=== PATIENT | female | born 2000 | race Caucasian/White ===

== ENCOUNTER 2023-02-24 10:02 | Outpatient (OUT) | payer OTHER, SELFPAY ==
--- NOTE | 2023-02-24 10:04 | US_ITS ---
[address] [address] Patient Name: ELIAS DELGADO MRN: [id number] date: 2000 Sex: F Assigned Patient Location: Current Patient Location: US Accession/Order Number: [id number] Exam Date: 02/24/2023 10:05 Report Date: 02/24/2023 15:17 At the request of: TINO ALVARADO Procedure: US OB transvaginal EXAMINATION: US OB transvaginal HISTORY: MISSED PERIOD COMPARISON: No relevant comparison available. FINDINGS: GESTATIONAL SAC: Present and normal appearing. YOLK SAC: Present and normal appearing. POLE: Present and normal appearing. CARDIAC: Present. UTERUS: Normal size and appearance. OVARIES: Right: Normal. Left: Normal. CERVIX: 4.7 cm in length and closed. CUL-DE-SAC: Normal. OTHER: None. AGE BY LMP: 8 weeks 1 day RATIE BY LMP: 10/05/2023 AGE BY US CRL: 8 weeks 0 days ARTIE BY US CRL: 10/06/2023 US/US OB transvaginal IMPRESSION: 1. Single live intrauterine . Electronically authenticated by: JESUSITA HEMPHILL Date: 02/24/2023 15:17
== END 2023-02-24 10:03 | disposition home or self-care (01) ==
PROVIDERS: Visit Provider Obstetrics & Gynecology
DX: Z34.91 Encounter for supervision of normal pregnancy, unspecified, first trimester (principal); Z3A.08 8 weeks gestation of pregnancy; N92.6 Irregular menstruation, unspecified
CPT/HCPCS: 76817

== ENCOUNTER 2023-03-24 15:43 | Outpatient (OUT) | payer OTHER, SELFPAY ==
[2023-03-24 16:03] LABS: Basophils Percent Auto 0.3 % (0.2-2.0); Eosinophils Absolute Auto 0.1 10^3/uL (0.0-0.7); Eosinophils Percent Auto 1.4 % (0.9-7.0); Hematocrit 34.7 % (36.0-48.0); Hemoglobin 11.5 g/dL (12.0-16.0); Immature Granulocytes Abs Auto 0.01 10^3/uL (0.00-0.03); Immature Granulocytes Pct Auto 0.1 % (0.0-0.5); Lymphocytes Absolute Auto 1.6 10^3/uL (1.2-3.8); Mean Corpuscular HGB Conc 33.1 g/dL (29.9-35.2); Mean Corpuscular Hemoglobin 26.4 pg (26.7-34.0); Mean Corpuscular Volume 79.6 fL (81.0-99.0); Mean Platelet Volume 10.2 fL (9.5-13.5); Monocytes Absolute Auto 0.4 10^3/uL (0.3-0.8); Monocytes Percent Auto 5.9 % (1.7-12.0); Neutrophils Absolute Auto 4.9 10^3/uL (1.4-6.5); Neutrophils Percent Auto 69.3 % (43.0-75.0); Platelet Count 218 10^3/uL (150-450); Red Blood Count 4.36 10^6/uL (4.20-5.40); Red Cell Distribution Width 19.4 % (11.0-15.0); White Blood Count 7.1 10^3/uL (4.0-11.0)
[2023-03-24 16:13] LABS: Estimated Average Glucose 97 mg/dL
[2023-03-24 16:45] LABS: Thyroid Stimulating Hormone 1.298 uIU/mL (0.358-3.740)
[2023-03-26 08:08] LABS: HBsAg Screen Negative (Negative); HIV Ab/p24 Ag Screen Non Reactive (Non Reactive); Rubella Antibodies, IgG 1.59 index (Immune >0.99)
[2023-03-26 09:07] LABS: Rapid Plasma Reagin, Quant Non Reactive (NonRea<1:1)
[2023-03-26 11:07] LABS: HCV Ab Non Reactive (Non Reactive)
== END 2023-03-24 15:44 | disposition home or self-care (01) ==
PROVIDERS: Visit Provider Obstetrics & Gynecology
DX: N92.6 Irregular menstruation, unspecified (principal)
CPT/HCPCS: 36415; 83036; 84443; 85025; 86592; 86706; 86762; 86803; 86850; 86900; 86901; 87086; 87389

== ENCOUNTER 2023-04-25 20:47 | Outpatient (REF) | payer OTHER, SELFPAY ==
[2023-04-30 21:06] LABS: Age Gdln ACOG Testing Note (.); IGP, rfx Aptima HPV ASCU Note (.)
== END 2023-04-25 20:48 | disposition home or self-care (01) ==
LOC: LAB 20:47
PROVIDERS: Visit Provider Physician Assistant
DX: Z12.4 Encounter for screening for malignant neoplasm of cervix (principal)
CPT/HCPCS: G0145

== ENCOUNTER 2023-05-05 12:19 | Outpatient (OUT) | payer OTHER, SELFPAY | END 2023-05-05 12:20 | disposition home or self-care (01) | LOC: LAB 12:22 | PROVIDERS: Visit Provider Obstetrics & Gynecology | DX: Z34.80 Encounter for supervision of other normal pregnancy, unspecified trimester (principal) | CPT/HCPCS: 36415 ==

== ENCOUNTER 2023-05-23 09:32 | Outpatient (OUT) | payer OTHER, SELFPAY ==
--- NOTE | 2023-05-23 09:34 | US_ITS ---
[address] [address] Patient Name: ELIAS DELGADO MRN: [id number] date: 2000 Sex: F Assigned Patient Location: US Current Patient Location: Accession/Order Number: [id number] Exam Date: 05/23/2023 09:35 Report Date: 05/23/2023 22:16 At the request of: SAIRA JOE Procedure: US OB cervical length EXAMINATION: US OB anatomy, US OB cervical length HISTORY: ANATOMY COMPARISON: No relevant comparison available. TECHNIQUE: Transabdominal sonographic examination was performed for obstetrical and evaluation. FINDINGS: Number: One Heart Rate: 141 H.B. /min Amniotic Fluid Volume: Subjectively normal Placental Location: Posterior with lower margin 5.2 cm from os. Cervix Length: 4.6 cm; closed. ANATOMY: Normal Structures -cerebellum, choroid plexus, cisterna magna, lateral cerebral ventricles, orbits, midline falx, hard palate, four-chamber heart, stomach, kidneys, bladder, umbilical cord insertion into abdomen, three-vessel cord, cervical spine, thoracic spine, lumbar spine, sacral spine, right upper extremity, left upper extremity, right lower extremity, left lower extremity. SUBOPTIMALLY SEEN: RVOT, LVOT, ABNORMALITIES: None BIOMETRY: BPD: 4.76 cm ; 20 weeks 3 days ; 36% HC: 17.83 cm ; 20 weeks 2 days ; 23% AC: 14.89 cm ; 20 weeks 1 day; 26% FL: 3.31 cm ; 20 weeks 2 days; 29% EFW:342 g; 22% FL/AC: 22.23 FL/BPD: 69.54 HC/AC: 1.20 GESTATIONAL AGE: Age by EDC: 20 weeks 5 days ARTIE by EDC: 10/05/2023 Age by current US: 20 weeks 2 days ARTIE by current US: 10/08/2023 US/US OB cervical length IMPRESSION: 1. Single live intrauterine with growth detailed above. 2. Suboptimal visualization of the cardiac outflow tracts due to position. Electronically authenticated by: JESUSITA HEMPHILL Date: 05/23/2023 22:16
--- NOTE | 2023-05-23 09:34 | US_ITS ---
[address] [address] Patient Name: ELIAS DELGADO MRN: [id number] date: 2000 Sex: F Assigned Patient Location: US Current Patient Location: Accession/Order Number: [id number] Exam Date: 05/23/2023 09:35 Report Date: 05/23/2023 22:16 At the request of: SAIRA JOE Procedure: US OB anatomy EXAMINATION: US OB anatomy, US OB cervical length HISTORY: ANATOMY COMPARISON: No relevant comparison available. TECHNIQUE: Transabdominal sonographic examination was performed for obstetrical and evaluation. FINDINGS: Number: One Heart Rate: 141 H.B. /min Amniotic Fluid Volume: Subjectively normal Placental Location: Posterior with lower margin 5.2 cm from os. Cervix Length: 4.6 cm; closed. ANATOMY: Normal Structures -cerebellum, choroid plexus, cisterna magna, lateral cerebral ventricles, orbits, midline falx, hard palate, four-chamber heart, stomach, kidneys, bladder, umbilical cord insertion into abdomen, three-vessel cord, cervical spine, thoracic spine, lumbar spine, sacral spine, right upper extremity, left upper extremity, right lower extremity, left lower extremity. SUBOPTIMALLY SEEN: RVOT, LVOT, ABNORMALITIES: None BIOMETRY: BPD: 4.76 cm ; 20 weeks 3 days ; 36% HC: 17.83 cm ; 20 weeks 2 days ; 23% AC: 14.89 cm ; 20 weeks 1 day; 26% FL: 3.31 cm ; 20 weeks 2 days; 29% EFW:342 g; 22% FL/AC: 22.23 FL/BPD: 69.54 HC/AC: 1.20 GESTATIONAL AGE: Age by EDC: 20 weeks 5 days ARTIE by EDC: 10/05/2023 Age by current US: 20 weeks 2 days ARTIE by current US: 10/08/2023 US/US OB anatomy IMPRESSION: 1. Single live intrauterine with growth detailed above. 2. Suboptimal visualization of the cardiac outflow tracts due to position. Electronically authenticated by: JESUSITA HEMPHILL Date: 05/23/2023 22:16
== END 2023-05-23 09:33 | disposition home or self-care (01) ==
LOC: US 09:32
PROVIDERS: Visit Provider Physician Assistant
DX: Z34.92 Encounter for supervision of normal pregnancy, unspecified, second trimester (principal); Z3A.20 20 weeks gestation of pregnancy
CPT/HCPCS: 76805; 76817

== ENCOUNTER 2023-06-27 14:47 | Outpatient (OUT) | payer OTHER, SELFPAY ==
--- NOTE | 2023-06-27 14:49 | US_ITS ---
The [address] [address] Patient Name: ELIAS DELGADO MRN: [id number] date: 2000 Sex: F Assigned Patient Location: US Current Patient Location: US Accession/Order Number: [id number] Exam Date: 06/27/2023 14:50 Report Date: 06/27/2023 15:54 At the request of: TINO ALVARADO Procedure: US OB incomplete anatomy EXAM: US OB incomplete anatomy HISTORY: SUBVISUALIZED RVOT AND LVOT COMPARISON: Ultrasound OB anatomy 05/23/2023 TECHNIQUE: Transabdominal ultrasound. FINDINGS: Heart rate: 156 bpm presentation: Breech Anatomy: Four-chamber heart, RVOT, LVOT without appreciable abnormality. GA: 25 weeks 5 days ARTIE: 10/05/2023 US/US OB incomplete anatomy IMPRESSION: 1. Single live intrauterine . 2. Adequate visualization of the four-chamber heart and cardiac outflow tracts; no appreciable abnormality. Electronically authenticated by: JESUSITA HEMPHILL Date: 06/27/2023 15:54
== END 2023-06-27 14:48 | disposition home or self-care (01) ==
LOC: US 14:47
PROVIDERS: Visit Provider Obstetrics & Gynecology
DX: Z36.2 Encounter for other antenatal screening follow-up (principal)
CPT/HCPCS: 76815

== ENCOUNTER 2023-07-13 07:29 | Outpatient (RCR) | payer OTHER, SELFPAY ==
[2023-07-13] MEDS: RHO(D) IMMUNE GLOBULIN 1,500 UNIT SYRINGE 1500 UNIT IM (14:50)
[2023-07-13 15:11] VITALS: BP 119/79; PULSE 86; RESP 18; TEMP 36.4; O2SAT 99
== END 2023-07-13 14:50 | disposition home or self-care (01) ==
LOC: INF 07:29
PROVIDERS: Visit Provider Obstetrics & Gynecology
DX: O26.893 Other specified pregnancy related conditions, third trimester (principal); Z67.41 Type O blood, Rh negative; Z3A.00 Weeks of gestation of pregnancy not specified
CPT/HCPCS: 36415; 86850; 86900; 86901; 96372; J2790

== ENCOUNTER 2023-07-13 20:58 | Observation (INO) | payer OTHER, SELFPAY ==
[2023-07-13 21:10] VITALS: BP 114/56; PULSE 64
== END 2023-07-13 21:30 | disposition home or self-care (01) ==
PROVIDERS: Admitting Provider Obstetrics & Gynecology; Visit Provider Obstetrics & Gynecology
DX: O26.893 Other specified pregnancy related conditions, third trimester (principal); Z67.41 Type O blood, Rh negative; O36.8130 Decreased fetal movements, third trimester, not applicable or unspecified; Z3A.00 Weeks of gestation of pregnancy not specified
CPT/HCPCS: 59025; 96372; G0378; G0379; J2790

== ENCOUNTER 2023-07-28 10:41 | Outpatient (OUT) | payer OTHER, SELFPAY ==
--- OUTSIDE RECORDS SUMMARY | 2023-07-28 10:44 | XMS_ITS | CCD ---
Author Name Unknown Address [address] [place] [address] Organization [facility] Care Team Providers Care Financial Analysis Manager Name Role Phone ISABEL ADEN Admitting Randolph ADEN, ISABEL Attending Randolph ADEN, ISABEL Consulting SAIRA Dejesus Attending Unavailable Problems Problem Classification Problem Date Documented Date Episodic/Chronic Inflammatory diseases of female pelvic organs (1 source) Acute vaginitis; Translations: [ACUTE VAGINITIS] Onset: 01-15-2020 Episodic Other female genital disorders (3 sources) Other specified noninflammatory disorders of vagina; Translations: [OTH SPEC NONINFLAMMATORY D/O VAGINA] Onset: 07-30-2019 Episodic Screening and history of mental health and substance abuse codes (1 source) Personal history of nicotine dependence; Translations: [PERSONAL HISTORY OF NICOTINE DEPEND] Onset: 01-15-2020 Episodic Results Test Name Value Interpretation Reference Range Facil ity ER URINE PROFILEon 9 Bilirubin [Mass/Vol] Negative Normal NEGATIVE The [facility] Comment on above: Performed By: #### E RUR #### [facility] [address] [address] Won Letty BLOOD Negative Normal NEGATIVE The [facility] Comment on above: Performed By: #### E RUR #### [facility] [address] [id number] Won Letty Clarity (U) CLEAR Normal [facility] Comment on above: Performed By: #### E RUR #### [facility] [address] [place], [place] [address] Won Letty Color (U) LT. YELLOW Normal YELLOW [facility] Comment on above: Performed By: #### E RUR #### [facility] [address] [place], [place] [id number] Won Letty ERUAHD A micrscopic examination will be performed if indicated. Normal [facility] Comment on above: Performed By: #### E RUR #### [facility] [address] [place], [place] [id number] Won Letty Glucose [Mass/Vol] Negative Normal NEGATIVE [facility] Comment on above: Performed By: #### E RUR #### [facility] [address] [place] [address] Won Letty Ketones Ql (U) Negative Normal NEGATIVE The [facility] Comment on above: Performed By: #### E RUR #### [facility] [address] [place] [address] Won Letty Nitrite Ql (U) Negative Normal NEGATIVE The [facility] Comment on above: Performed By: #### E RUR #### [facility] [address] [place] [address] Won Letty pH (Bld) 7.0 Normal 5-9 [facility] Comment on above: Performed By: #### E RUR #### [facility] [address] [place] [address] Won Letty Protein (U) [Mass/Vol] TRACE Normal [facility] Comment on above: Performed By: #### E RUR #### [facility] [address] [place] [address] Won Letty SPEC GRAVITY 1.020 Normal 1.005-<=1.025 [facility] Comment on above: Performed By: #### E RUR #### [facility] [address] [place], [place] [id number] Won Letty UR MICRO IND NOT INDICATED Normal [facility] Comment on above: Performed By: #### E RUR #### [facility] [address] [place] [address] Won Letty Urobilinogen Qn (U) 0.2 EU/dl Normal [facility] Comment on above: Performed By: #### E RUR #### [facility] [address] [place], [place] [address] Won Saenz WBC (Bld) [#/Vol] Negative Normal NEGATIVE The [facility] Comment on above: Performed By: #### E RUR #### [facility] [address] [place], [place] [address] Won Saenz URon 07-30-2019 , QUAL Negative Normal NEGATIVE The [facility] Comment on above: Performed By: #### P REGU #### [facility] [address] [place], [place] [address] Won Saenz Encounters Encounter Date Encounter Type Care Provider Facility Start: 06-20-2023 End: 06-20-2023 ambulatory SAIRA JOE Not Available Start: 07-30-2019 End: 07-30-2019 Patient encounter procedure FERNESTEFANI HOWELLLOLIS Facility: Payers Date Payer Category Payer Unknown [id number] 2.16.84 [id number] 2000 Unknown [id number] 1959 Unknown [id number] Summary Purpose Family History No Family History Records FoundNo Family History Records Found Advance Directives No Advanced Directives Records FoundNo Advanced Directives Records Found Additional Source Comments INFORMATION SOURCE (unrecogn ized section and content) DATE CREATED AUTHOR 01/15/2020 [facility] DATE CREATED AUTHOR AUTHOR'S ORGANIZ ATION 06/22/2023 [facility] dical Specialists [facility] FOR RECORDS PERTAINING TO PATIENTS WHO ARE OR HAVE BEEN ENROLLED IN A CHEMICAL DEPENDENCY/SUBSTANCEABUSE PROGRAM, SOME INFORMATION MAY BE OMITTED. This clinical summary was aggregated from multiple sources. Caution should be exercised in using it in the provision of clinical care. This summary normalizes information from multiple sources, and as a consequence, information in this document may materially change the coding, format and clinical context of patient data. In addition, data may be omitted in some cases. CLINICAL DECISIONS SHOULD BE BASED ON THE PRIMARY CLINICAL RECORDS. [facility] [employer] provides no warranty or guarantee of the accuracy or completeness of information in this document.
[2023-07-28 12:26] LABS: Glucose 1 Hour 138 mg/dL
== END 2023-07-28 10:42 | disposition home or self-care (01) ==
LOC: LAB 10:42
PROVIDERS: Visit Provider Physician Assistant
DX: Z34.92 Encounter for supervision of normal pregnancy, unspecified, second trimester (principal)
CPT/HCPCS: 36415; 82950

== ENCOUNTER 2023-09-06 14:04 | Outpatient (OUT) | payer OTHER, SELFPAY ==
--- NOTE | 2023-09-06 14:06 | US_ITS ---
[address] [address] Patient Name: ELIAS DELGADO MRN: [id number] date: 2000 Sex: F Assigned Patient Location: [facility] Current Patient Location: [facility] Accession/Order Number: [id number] Exam Date: 09/06/2023 14:06 Report Date: 09/06/2023 14:49 At the request of: TINO ALVARADO Procedure: US OB growth EXAMINATION: US OB growth HISTORY: LGA COMPARISON: No relevant comparison available. FINDINGS: Heart Rate: 161.0 bpm Amniotic Fluid Volume: 12.7 cm Number: 1.0 Position: Cephalic presentation, longitudinal lie Maximum Vertical Pocket: 2.0 cm cm 3.3 cm cm 4.0 cm cm 3.4 cm cm BIOMETRY: BPD: 8.4 cm cm; 33 weeks 4 days; 6% HC: 31.3 cmcm; 35 weeks 0 days , 8% AC: 31.0 cm cm; 35 weeks 0 days, 33% FL: 7.1 cm cm; 36 weeks 1 days; 52.7 % % EFW: 2600.5 grams, 5 lbs. 12 oz., 30% FL/AC: 22.8 FL/BPD: 84.4 HC/AC: 1.0 GESTATIONAL AGE: Age by EDC: 35 weeks 6 days ARTIE by EDC: 10/05/2023 Age by US: 35 weeks 0 days ARTIE by US: 10/11/2023 US/US OB growth IMPRESSION: Normal interval growth Electronically authenticated by: VALENTINA VASQUEZ Date: 09/06/2023 14:49
--- OUTSIDE RECORDS SUMMARY | 2023-09-06 14:10 | XMS_ITS | CCD ---
Author Name Unknown Address [facility] [place] [address] Organization [facility] Care Team Providers Care Cell Geneticist Name Role Phone ISABEL ADEN Admitting ISABEL French Attending Unavailsanchez e KEIKO, ISABEL Consulting Unavailsanchez e SAIRA JOE Attending Unavailable TINO ALVARADO Attending Unavailable TINO ALVARADO Attending Unavailable SAIRA JOE Attending Unavailable TINO ALVARADO Attending Unavailable Problems Problem Classification Problem Date [...] 9 Bilirubin [Mass/Vol] Negative Normal NEGATIVE The [facility] Comment on above: Performed By: #### E RUR #### [facility] [address] [place], [place] [address] Won Letty BLOOD Negative Normal NEGATIVE The [facility] Comment on above: Performed By: #### E RUR #### [facility] [address] [place], [place] [address] Won Letty Clarity (U) CLEAR Normal [facility] Comment on above: Performed By: #### E RUR #### [facility] [address] [place] [address] Won Letty Color (U) LT. YELLOW Normal YELLOW [facility] Comment on above: Performed By: #### E RUR #### [facility] [address] [place], [place] [id number] Won Letty ERUAHD A micrscopic examination will be performed if indicated. Normal [facility] Comment on above: Performed By: #### E RUR #### [facility] [address] [place] [address] Won Letty Glucose [Mass/Vol] Negative Normal NEGATIVE [facility] Comment on above: Performed By: #### E RUR #### [facility] [address] [place] [address] Won Letty Ketones Ql (U) Negative Normal NEGATIVE The [facility] Comment on above: Performed By: #### E RUR #### [facility] [address] [place] [address] Won Letty Nitrite Ql (U) Negative Normal NEGATIVE The [facility] Comment on above: Performed By: #### E RUR #### [facility] [address] [place], [place] [id number] Won Letty pH (Bld) 7.0 Normal 5-9 [facility] Comment on above: Performed By: #### E RUR #### [facility] [address] [place] [address] Won Letty Protein (U) [Mass/Vol] TRACE Normal [facility] Comment on above: Performed By: #### E RUR #### [facility] [address] [place] [address] Won Letty SPEC GRAVITY 1.020 Normal 1.005-<=1.025 The [facility] Comment on above: Performed By: #### E RUR #### [facility] [address] [place] [address] Won Letty UR MICRO IND NOT INDICATED Normal The [facility] Comment on above: Performed By: #### E RUR #### [facility] [address] [place] [address] Won Saenz Urobilinogen Qn (U) 0.2 EU/dl Normal The [facility] Comment on above: Performed By: #### E RUR #### [facility] [address] [place], [place] [address] Won Saenz WBC (Bld) [#/Vol] Negative Normal NEGATIVE The [facility] Comment on above: Performed By: #### E RUR #### [facility] [address] [place], [place] [address] Won Saenz URon 07-30-2019 , QUAL Negative Normal NEGATIVE The [facility] Comment on above: Performed By: #### P REGU #### [facility] [address] [place], [place] [address] Won Saenz Encounters Encounter Date Encounter Type Care Provider Facility Start: 08-30-2023 End: 08-30-2023 ambulatory TINO JENNY Not Available Start: 08-15-2023 End: 08-15-2023 ambulatory TINO JENNY Not Available Start: 08-01-2023 End: 08-01-2023 ambulatory SAIRA TATYANA Not Available Start: 07-18-2023 End: 07-18-2023 ambulatory TINO JENNY Not Available Start: 06-20-2023 End: 06-20-2023 ambulatory SAIRA TATYANA Not Available Start: 07-30-2019 End: 07-30-2019 Patient encounter procedure ISABEL ADEN Facility: Payers Date Payer Category Payer Unknown [id number] [id number] [id number] 2000 Unknown [id number] 2.16.84 [id number] 1999 Unknown [id number] 2.16.84 [id number] 1999 Unknown [id number] 1999 Unknown [id number] 1999 Unknown [id number] 1959 Unknown [id number] Summary Purpose Family History No Family History Records FoundNo Family History Records Found Advance Directives No Advanced Directives Records FoundNo Advanced Directives Records Found Additional Source Comments INFORMATION SOURCE (unrecogn ized section and content) DATE CREATED AUTHOR 01/15/2020 [facility] DATE CREATED AUTHOR AUTHOR'S ORGANIZ ATION 09/01/2023 [facility] dical Specialists [facility] FOR RECORDS PERTAINING TO PATIENTS WHO ARE [...] BE BASED ON THE PRIMARY CLINICAL RECORDS. [employer] provides no warranty or guarantee of the accuracy or completeness of information in this document.
== END 2023-09-06 14:05 | disposition home or self-care (01) ==
LOC: NOMS 14:04
PROVIDERS: Visit Provider Obstetrics & Gynecology
DX: O36.63X1 Maternal care for excessive fetal growth, third trimester, fetus 1 (principal); Z3A.35 35 weeks gestation of pregnancy; Z34.93 Encounter for supervision of normal pregnancy, unspecified, third trimester
CPT/HCPCS: 76816; 87081

== ENCOUNTER 2023-09-06 21:39 | Outpatient (REF) | payer OTHER, SELFPAY ==
--- OUTSIDE RECORDS SUMMARY | 2023-09-06 21:42 | XMS_ITS | CCD ---
Author Name Unknown Address [facility] [place] [address] Organization [facility] Care Team Providers Care Drive Man Name Role Phone ISABEL ADEN Admitting ISABEL [...] 9 Bilirubin [Mass/Vol] Negative Normal NEGATIVE The [facility] Comment on above: Performed By: #### E RUR #### [facility] [address] [place], [place] [address] Won Letty BLOOD Negative Normal NEGATIVE The [facility] Comment on above: Performed By: #### E RUR #### [facility] [address] [place], [place] [address] Won Letty Clarity (U) CLEAR Normal [facility] Comment on above: Performed By: #### E RUR #### [facility] [address] [place] [address] Won Letty Color (U) LT. YELLOW Normal YELLOW [facility] Comment on above: Performed By: #### E RUR #### [facility] [address] [place], [place] [id number] Won Letty ERUAHD A micrscopic examination will be performed if indicated. Normal The [facility] Comment on above: Performed By: #### E RUR #### [facility] [address] [place] [address] Won Letty Glucose [Mass/Vol] Negative Normal NEGATIVE [facility] Comment on above: Performed By: #### E RUR #### [facility] [address] [place] [address] Won Letty Ketones Ql (U) Negative Normal NEGATIVE The [facility] Comment on above: Performed By: #### E RUR #### [facility] [address] [place] [address] Won Letty Nitrite Ql (U) Negative Normal NEGATIVE The [facility] Comment on above: Performed By: #### E RUR #### [facility] [address] [place], [place] [address] Won Letty pH (Bld) 7.0 Normal 5-9 [facility] Comment on above: Performed By: #### E RUR #### [facility] [address] [place] [address] Won Letty Protein (U) [Mass/Vol] TRACE Normal The [facility] Comment on above: Performed By: #### E RUR #### [facility] [address] [place] [address] Won Letty SPEC GRAVITY 1.020 Normal 1.005-<=1.[address] [facility] Comment on above: Performed By: #### E RUR #### [facility] [address] [place] [address] Won Letty UR MICRO IND NOT INDICATED Normal The [facility] Comment on above: Performed By: #### E RUR #### [facility] [address] [place] [address] Won Saenz Urobilinogen Qn (U) 0.2 EU/dl Normal The [facility] Comment on above: Performed By: #### E RUR #### [facility] [address] [place], [place] [address] Won Saenz WBC (Bld) [#/Vol] Negative Normal NEGATIVE The [facility] Comment on above: Performed By: #### E RUR #### [facility] [address] [place], [place] [address] Won Saenz URon 07-30-2019 , QUAL Negative Normal NEGATIVE The [facility] Comment on above: Performed By: #### P REGU #### [facility] [address] [place], [place] [address] Won Saenz Encounters Encounter Date Encounter Type [...] Facility: Payers Date Payer Category Payer Unknown [id number] 2.16.84 [id number] 1999 Unknown [id number] 2.16.84 [id number] 1999 Unknown [id number] 2.16.84 [id number] 1999 Unknown [id number] 1999 Unknown [id number] 1999 Unknown [id number] 1959 Unknown [id number] Summary Purpose Family History No Family History Records FoundNo Family History Records Found Advance Directives No Advanced Directives Records FoundNo Advanced Directives Records Found Additional Source Comments INFORMATION SOURCE (unrecogn ized section and content) DATE CREATED AUTHOR 01/15/2020 [facility] DATE CREATED AUTHOR AUTHOR'S ORGANIZ ATION 09/01/2023 [facility] dical Specialists [facility] FOR RECORDS PERTAINING TO PATIENTS WHO [...] BE BASED ON THE PRIMARY CLINICAL RECORDS. [employer] provides no warranty or guarantee of the accuracy or completeness of information in this document.
== END 2023-09-06 21:40 | disposition home or self-care (01) ==
LOC: LAB 21:39
PROVIDERS: Visit Provider Obstetrics & Gynecology
DX: Z34.93 Encounter for supervision of normal pregnancy, unspecified, third trimester (principal)
CPT/HCPCS: 87081

== ENCOUNTER 2023-09-29 05:22 | Inpatient (IN) | payer OTHER, SELFPAY ==
[2023-09-29] VITALS (38 sets, daily range): BP systolic 112–131; BP diastolic 62–85; PULSE 56–78; RESP 11–20; TEMP 36.1–36.7; O2SAT 96–100
--- OUTSIDE RECORDS SUMMARY | 2023-09-29 05:25 | XMS_ITS | CCD ---
Author Name Unknown Address [id number] [place] [address] Organization [facility] Care Team Providers [facility] Executive Director Name Role Phone ISABEL ADEN Admitting Unavailabl e FRIDRICH, ISABEL Attending Unavailabl e RUBÉNICH, ISABEL Consulting Unavailabl e Unavailable Primary Care Provider SAIRA Dejesus Attending Unavailable ILIR, TINO Attending Unavailable ILIR, TINO Attending Unavailable ILIR, TINO Attending Unavailable SAIRA JOE Attending Unavailable ILIR, TINO Attending Unavailable ILIR, TINO Attending Unavailable ILIR, TINO Attending Unavailable ILIR, TINO Attending Unavailable Medications Current Medications Medication Drug Class(es) Dates Sig (Normalized) Sig (Original) magnesium oxide 400 mg oral tablet (4 sources) Start: 08-28-2023 take 1 tablet by mouth once daily in the morning magnesium oxide (Mag-Ox) 400 (240 Mg) MG tablet Indications: Other migraine without status migrainosus, not intractable (CMS/HCC) take 1 tablet by mouth every morning 30 tablet 3 08/28/2023 Active omeprazole 20 mg delayed release oral capsule (4 sources) Proton Pump Inhibitor Start: 08-31-2023 End: 08-30-2024 take 1 capsule by mouth at bedtime omeprazole (PriLOSEC) [address] capsule Indications: Heartburn during in third trimester Take 1 capsule (20 mg) by mouth at bedtime Do not crush or chew. 30 capsule 11 08/31/2023 08/30/2024 Active Vit-Fe Fumarate-FA ( Plus/Iron) 27-1 MG tablet (4 sources) Start: 02-24-2023 End: 02-24-2024 take 1 tablet by mouth in the morning Vit-Fe Fumarate-FA ( Plus/Iron) 27-1 MG tablet Indications: Missed menses Take 1 tablet by mouth in the morning. 30 tablet 9 02/24/2023 02/24/2024 Active sertraline 50 mg oral tablet (4 sources) Serotonin Reuptake Inhibitor take 1 tablet by mouth in the morning sertraline (Zoloft) 50 MG tablet Take 50 mg by mouth in the morning. 0 Active Completed/Discontinued Medications Medication Drug Class(es) Dates Sig (Normalized) Sig (Original) FLUoxetine 10 mg oral capsule (2 sources) Serotonin Reuptake Inhibitor Start: 10-26-2022 End: 09-06-2023 take 1 capsule by mouth in the morning FLUoxetine (PROzac) 10 MG capsule Take 10 mg by mouth in the morning. 0 10/26/2022 09/06/2023 Discontinued metroNIDAZOLE 500 mg oral tablet (4 sources) Nitroimidazole Antimicrobial Start: 09-06-2023 End: 09-13-2023 take 1 tablet by mouth in the morning metroNIDAZOLE (Flagyl) 500 MG tablet Indications: Vaginal discharge Take 1 tablet (500 mg) by mouth in the morning and 1 tablet (500 mg) before bedtime. Do all this for 7 days. 14 tablet 0 09/06/2023 09/13/2023 traZODone hydrochloride 100 mg oral tablet (2 sources) Serotonin Reuptake Inhibitor Start: 09-29-2022 End: 09-06-2023 traZODone (Desyrel) 100 MG tablet Take 100 mg by mouth as needed at bedtime. 0 09/29/2022 09/06/2023 Discontinued Problems Problem Classification Problem Date Documented Date Episodic/Chronic Inflammatory diseases of female pelvic organs (1 source) Acute vaginitis; Translations: [ACUTE VAGINITIS] Onset: 01-15-2020 Episodic Other female genital disorders (3 sources) Other specified noninflammatory disorders of vagina; Translations: [OTH SPEC NONINFLAMMATORY D/O VAGINA] Onset: 07-30-2019 Episodic Other female genital disorders (2 sources) Vaginal discharge; Translations: [Other specified noninflammatory disorders of vagina] 09-06-2023 Episodic Other and delivery including normal (4 sources) Third trimester ; Translations: [Encounter for supervision of normal , unspecified, third trimester] 09-01-2023 Episodic Screening and history of mental health and substance abuse codes (1 source) Personal history of nicotine dependence; Translations: [PERSONAL HISTORY OF NICOTINE DEPEND] Onset: 01-15-2020 Episodic Results Test Name Value Interpretation Reference Range Facil ity Urinalysis macro (dipstick) panel (U)on 09-13-2023 Bilirubin, UA Negative Negative - 4(70) +++ mg/dL [facility] Blood, UA Negative Negative - 50 Kody/mcL [facility] Clarity, UA Clear [facility] Color, UA Yellow [facility] Glucose, UA Negative Negative - 1999(110) ++++ mg/dL [facility] Interpretation and review of laboratory results Abnormal [facility] Ketones, UA Negative Negative - 160(16) ++++ mg/dL [facility] Leukocytes, UA Positive Negative - 500+++ Jalen/mcL [facility] Comment on above: small Nitrite, UA Negative Negative - Positive [facility] pH, UA 7.0 5 - 9 [facility] Protein, UA Negative Negative - 1999(20) ++++ mg/dL [facility] Spec Grav, UA 1.025 1 - 1.03 [facility] Health care Urobilinogen, UA 0.2 0.2 - 12 mg/dL [facility] Urinalysis macro (dipstick) panel (U)on 09-06-2023 Bilirubin, UA Negative Negative - 4(70) +++ mg/dL [facility] Blood, UA Negative Negative - 50 Kody/mcL [facility] Clarity, UA Clear [facility] Color, UA Yellow [facility] Glucose, UA Negative Negative - 1999(110) ++++ mg/dL [facility] Interpretation and review of laboratory results Normal [facility] Ketones, UA Negative Negative - 160(16) ++++ mg/dL [facility] Leukocytes, UA Negative Negative - 500+++ Jalen/mcL [facility] Nitrite, UA Negative Negative - Positive [facility] pH, UA 7.5 5 - 9 [facility] Protein, UA Negative Negative - 1999(20) ++++ mg/dL [facility] Spec Grav, UA 1.020 1 - 1.03 [facility] Urobilinogen, UA 0.2 0.2 - 12 mg/dL [facility] e ER URINE PROFILEon 9 Bilirubin [Mass/Vol] Negative Normal NEGATIVE [facility] Comment on above: Performed By: #### E RUR #### [facility] [address] [place] [address] Won Letty BLOOD Negative Normal NEGATIVE [facility] Comment on above: Performed By: #### E RUR #### [facility] [address] [place] [address] Won Letty Clarity (U) CLEAR Normal [facility] Comment on above: Performed By: #### E RUR #### [facility] [address] [place] [address] Won Letty Color (U) LT. YELLOW Normal YELLOW [facility] Comment on above: Performed By: #### E RUR #### [facility] [address] [place] [address] Won Letty ERUAHD A micrscopic examination will be performed if indicated. Normal [facility] Comment on above: Performed By: #### E RUR #### [facility] [address] [place] [address] Won Letty Glucose [Mass/Vol] Negative Normal NEGATIVE [facility] Comment on above: Performed By: #### E RUR #### [facility] [address] [place] [address] Won Letty Ketones Ql (U) Negative Normal NEGATIVE [facility] Comment on above: Performed By: #### E RUR #### [facility] [address] [place] [address] Won Letty Nitrite Ql (U) Negative Normal NEGATIVE [facility] Comment on above: Performed By: #### E RUR #### [facility] [address] [place], [place] [id number] Won Letty pH (Bld) 7.0 Normal 5-9 [facility] Comment on above: Performed By: #### E RUR #### [facility] [address] [place] [address] Won Letty Protein (U) [Mass/Vol] TRACE Normal [facility] Comment on above: Performed By: #### E RUR #### [facility] [address] [place], [place] [address] Won Saezn SPEC GRAVITY 1.020 Normal 1.005-<=1.025 [facility] Comment on above: Performed By: #### E RUR #### [facility] [address] [place], [place] [address] Won Saenz UR MICRO IND NOT INDICATED Normal [facility] Comment on above: Performed By: #### E RUR #### [facility] [address] [place], [place] [address] Won Saenz Urobilinogen Qn (U) 0.2 EU/dl Normal [facility] Comment on above: Performed By: #### E RUR #### [facility] [address] [place], [place] [address] Won Saenz WBC (Bld) [#/Vol] Negative Normal NEGATIVE [facility] Comment on above: Performed By: #### E RUR #### [facility] [address] [place], [place] [address] Won Saenz URon 07-30-2019 , QUAL Negative Normal NEGATIVE [facility] Comment on above: Performed By: #### P REGU #### [facility] [address] [place], [place] [address] Won Saenz Vital Signs Date Time Vital Sign Value Performing Clinician Faci lity 09-06-2023 14:44-0500 Body weight 69.4 kg Tino Ilir DO Work Phone: [facility] 09-06-2023 14:44-0500 Diastolic blood pressure 68 mm[Hg] Tino Ilir DO Work Phone: [facility] 09-06-2023 14:44-0500 Systolic blood pressure 116 mm[Hg] Tino Ilir DO Work Phone: [facility] Encounters Encounter Date Encounter Type Care Provider Facility Start: 09-26-2023 End: 09-26-2023 ambulatory TINO HAZEL Not Available Start: 09-19-2023 End: 09-19-2023 ambulatory TINO ILIR Not Available Start: 09-13-2023 End: 09-13-2023 ambulatory TINO ILIR Not Available Start: 09-13-2023 End: 09-13-2023 Office outpatient visit 15 minutes Tino Ilir DO Work Phone: [facility] Comment on above: Third trimester preg prince Start: 09-06-2023 End: 09-06-2023 ambulatory TINO ILIR Not Available Start: 09-06-2023 End: 09-06-2023 Office outpatient visit 15 minutes Tino Ilir DO Work Phone: [facility] Comment on above: Third trimester preg prince; Vaginal discharge Start: 08-30-2023 End: 08-30-2023 ambulatory TINO ILIR Not Available Start: 08-15-2023 End: 08-15-2023 ambulatory TINO ILIR Not Available Start: 08-01-2023 End: 08-01-2023 ambulatory SAIRA TATYANA Not Available Start: 07-18-2023 End: 07-18-2023 ambulatory TINO ILIR Not Available Start: 06-20-2023 End: 06-20-2023 ambulatory SAIRA TATYANA Not Available Start: 07-30-2019 End: 07-30-2019 Patient encounter procedure [facility] Facility: Procedures Date Procedure Procedure Detail Performing Clinician Start: 09-13-2023 Urnls dip stick/tabl et rgnt non-auto w/o micrscp Tino Ilir DO Work Phone: Start: 09-06-2023 Urnls dip stick/tabl et rgnt non-auto w/o micrscp Tino Ilir DO Work Phone: Plan of Treatment Date Care Activity Detail Author Start: 09-19-2023 End: 09-19-2023 Patient encounter procedure 09/19/2023 2:20 PM EST Routine [facility] [address] [place] [id number] Ilir, Tino, DO [address] [place], [place] [id number] [facility] Start: 09-13-2023 End: 09-13-2023 Patient encounter procedure 09/13/2023 1:00 PM EST Routine [facility] [address] [place] [id number] Tino Hazel, DO [address] [place] [address] Third trimester [facility] Comment on above: Third trimester preg prince Start: 09-06-2023 End: 09-06-2024 Strep B DNA probe, amplification Strep B DNA probe, amplification Lab Routine Third trimester Expected: 09/06/2023 (Approximate), Expires: 09/06/2024 [facility] Work Phone: Comment on above: Expected: 09/06/2023 (Approximate), Expires: 09/06/2024 CHLAMYDIA TRACHOMATI S (GENITO/STI) CHLAMYDIA TRACHOMATIS (GENITO/STI) Lab Routine Third trimester Vaginal discharge Ordered: 09/06/2023 [facility] Comment on above: Ordered: 09/06/2023 Neisseria gonorrhoea e DNA [Presence] in Unspecified specimen by SACHA with probe detection Neisseria gonorrhea DNA probe, direct Lab Routine Third trimester Vaginal discharge Ordered: 09/06/2023 [facility] Comment on above: Ordered: 09/06/2023 SURESWAB(R) ADVANCED VAGINITIS PLUS, TMA SURESWAB(R) ADVANCED VAGINITIS PLUS, TMA Pathology and Cytology Routine Third trimester Vaginal discharge Ordered: 09/06/2023 [facility] Comment on above: Ordered: 09/06/2023 Payers Date Payer Category Payer Medicaid [employer] [place] [employer] [id number] 2019-Present [address] [place] [address] [id number] 1999 Unknown [id number] 1999 Unknown [id number] 1999 Unknown [id number] 1999 Unknown [id number] 1999 Unknown [id number] 1999 Unknown [id number] 1999 Unknown [id number] 1999 Unknown [id number] 1999 Unknown [id number] 1999 Unknown [id number] 1959 Unknown [id number] Social History Date Type Detail Facility Start: 03-21-2023 Tobacco smoking stat [facility] Never smoked tobacco [facility] Start: 09-06-2023 End: 09-13-2023 Alcohol intake Lifetime non-drinker (finding) [facility] Start: 04-25-2023 History of Social function [facility] Start: 04-25-2023 Tobacco use panel [facility] Start: 03-21-2023 Alcohol Comment Caffeine: occasional ly [facility] Start: 01-12-2023 [facility] Start: 1999 Sex Assigned At Not on file [facility] History of Present illness Narrative 09-13-2023 Letty Garrett LPN - 09/13/2023 1:00 PM EST Note Date & Type Note Facility 09-13-2023 History of Presen t illness Narrative Reason for Appointment: Patient ID: Lorie Wilson is a 23 y.o. female who presents for Routine Visit Patient presents today for Return OB appointment. Current Medications: has a current medication list which includes the following prescription(s): magnesium oxide, metronidazole, omeprazole, plus/iron, and sertraline. Medical History: Active Ambulatory Problems Diagnosis Date Noted No Active Ambulatory Problems Resolved Ambulatory Problems Diagnosis Date Noted No Resolved Ambulatory Problems Past Medical History: Diagnosis Date History of gonorrhea History of medical problems No family history on file. Social History Tobacco Use Smoking status: Never Smokeless tobacco: Not on file Substance Use Topics Alcohol use: Never Comment: Caffeine: occasionally Drug use: Not on file Past Surgical History: Procedure Laterality Date SECTION, LOW TRANSVERSE 10/18/2017 No Known Allergies Review of Systems: Review of Systems Constitutional: Negative. HENT: Negative. Eyes: Negative. Respiratory: Negative. Cardiovascular: Negative. Gastrointestinal: Negative. Genitourinary: Negative. Musculoskeletal: Negative. Skin: Negative. Neurological: Negative. All other systems reviewed and are negative. Hematological: Negative. Endocrine: Negative. Allergic/Immunologic: Negative. Objective Physical Exam Constitutional: Appearance: Normal appearance. She is well-developed. Cardiovascular: Rate and Rhythm: Normal rate and regular rhythm. Pulmonary: Effort: Pulmonary effort is normal. Breath sounds: Normal breath sounds. Abdominal: General: Bowel sounds are normal. There is no distension. Palpations: Abdomen is soft. Tenderness: There is no abdominal tenderness. There is no guarding or rebound. Musculoskeletal: General: No swelling. Normal range of motion. Right lower leg: No edema. Left lower leg: No edema. Neurological: Mental Status: She is alert and oriented to person, place, and time. Skin: General: Skin is warm and dry. Psychiatric: Mood and Affect: Mood normal. Behavior: Behavior normal. Vitals and nursing note reviewed. Exam conducted with a packing machine inspector present. Vitals: There is no height or weight on file to calculate BMI. BP: Patient's last menstrual period was 12/29/2022. Assessment/Plan Encounter Diagnosis Name Primary? Third trimester Patient presents today for a routine obstetrics appointment. Patient is currently 36w6d . Patient states she is doing well but has complaints of being tired due to current . Patient has verbalizes frequent movement. labor precautions was discussed/given and patient was instructed to perform kick counts three times a day. Patient will undergo repeat section. with Dr. Hazel. Surgical consents were signed, partners instructions were given, mmc was reviewed, and patient is to proceed to [facility] OR on her scheduled day. Follow Up: Patient is to return in 1 week for routine OB appointment. Documented by Letty Garrett LPN on behalf of: Tino Hazel DO documented in this encounter [facility] History of Present illness Narrative 09-06-2023 Letty Garrett LPN - 09/06/2023 2:40 PM EST Note Date & Type Note Facility 09-06-2023 History of Presen t illness Narrative Reason for Appointment: Patient ID: Lorie Wilson is a 23 y.o. female who presents for Routine Visit Patient presents today for Return OB appointment. Current Medications: has a current medication list which includes the following prescription(s): magnesium oxide, omeprazole, plus/iron, and sertraline. Medical History: Active Ambulatory Problems Diagnosis Date Noted No Active Ambulatory Problems Resolved Ambulatory Problems Diagnosis Date Noted No Resolved Ambulatory Problems Past Medical History: Diagnosis Date History of gonorrhea History of medical problems No family history on file. Social History Tobacco Use Smoking status: Never Smokeless tobacco: Not on file Substance Use Topics Alcohol use: Never Comment: Caffeine: occasionally Drug use: Not on file Past Surgical History: Procedure Laterality Date SECTION, LOW TRANSVERSE 10/18/2017 No Known Allergies Review of Systems: Review of Systems Constitutional: Negative. HENT: Negative. Eyes: Negative. Respiratory: Negative. Cardiovascular: Negative. Gastrointestinal: Negative. Genitourinary: Negative. Musculoskeletal: Negative. Skin: Negative. Neurological: Negative. All other systems reviewed and are negative. Hematological: Negative. Endocrine: Negative. Allergic/Immunologic: Negative. Objective Physical Exam Constitutional: Appearance: Normal appearance. She is well-developed. Genitourinary: Vulva normal. Cardiovascular: Rate and Rhythm: Normal rate and regular rhythm. Pulmonary: Effort: Pulmonary effort is normal. Breath sounds: Normal breath sounds. Abdominal: General: Bowel sounds are normal. There is no distension. Palpations: Abdomen is soft. Tenderness: There is no abdominal tenderness. There is no guarding or rebound. Musculoskeletal: General: No swelling. Normal range of motion. Right lower leg: No edema. Left lower leg: No edema. Neurological: Mental Status: She is alert and oriented to person, place, and time. Skin: General: Skin is warm and dry. Psychiatric: Mood and Affect: Mood normal. Behavior: Behavior normal. Vitals and nursing note reviewed. Exam conducted with a packing machine inspector present. Vitals: There is no height or weight on file to calculate BMI. BP: 116/68 Patient's last menstrual period was 12/29/2022. Assessment/Plan Encounter Diagnoses Name Primary? Third trimester Vaginal discharge Patient is doing well but has complaints of being tired and having maternal discomfort due to . Patient verbalized frequent movement and was instructed to perform kick counts three times per day. labor precautions were given, LARC consent was signed/declined, and GBS was obtained. Rx for flagyl faxed to pharmacy Follow Up: Patient is to return to office in 1 week for routine OB apptment Documented by Letty Garrett LPN on behalf of: Tino Hazel DO documented in this encounter [facility] Evaluation note Note Date & Type Note Facility Evaluation note Diagnosis Third trimester state, incidental Vaginal discharge Leukorrhea, not specified as infective Third trimester state, incidental documented in this encounter [facility] Evaluation note Note Date & Type Note Facility Evaluation note Diagnosis Third trimester state, incidental documented in this encounter [facility] Summary Purpose Family History No Family History Records FoundNo Family History Records Found Advance Directives No Advanced Directives Records FoundNo Advanced Directives Records Found Additional Source Comments INFORMATION SOURCE (unrecogn ized section and content) DATE CREATED AUTHOR 01/15/2020 [facility] DATE CREATED AUTHOR AUTHOR'S ORGANIZ ATION 09/26/2023 [facility] EPIC Reason for Visit (unrecogniz ed section and content) Reason Comments Routine Visit FOR RECORDS PERTAINING TO PATIENTS WHO ARE [...] BE BASED ON THE PRIMARY CLINICAL RECORDS. [employer] [facility]. provides no warranty or guarantee of the accuracy or completeness of information in this document.
[2023-09-29 05:57] LABS: Basophils Percent Auto 0.2 % (0.2-2.0); Eosinophils Absolute Auto 0.1 10^3/uL (0.0-0.7); Eosinophils Percent Auto 1.4 % (0.9-7.0); Hemoglobin 11.1 g/dL (12.0-16.0); Immature Granulocytes Abs Auto 0.03 10^3/uL (0.00-0.03); Immature Granulocytes Pct Auto 0.3 % (0.0-0.5); Lymphocytes Absolute Auto 1.8 10^3/uL (1.2-3.8); Lymphocytes Percent Auto 19.7 % (20.5-60.0); Mean Corpuscular HGB Conc 33.6 g/dL (29.9-35.2); Mean Corpuscular Hemoglobin 30.7 pg (26.7-34.0); Mean Corpuscular Volume 91.2 fL (81.0-99.0); Mean Platelet Volume 12.2 fL (9.5-13.5); Monocytes Absolute Auto 0.7 10^3/uL (0.3-0.8); Neutrophils Absolute Auto 6.4 10^3/uL (1.4-6.5); Neutrophils Percent Auto 70.4 % (43.0-75.0); Platelet Count 175 10^3/uL (150-450); Red Blood Count 3.62 10^6/uL (4.20-5.40); Red Cell Distribution Width 12.3 % (11.0-15.0); White Blood Count 9.1 10^3/uL (4.0-11.0)
[2023-09-29] MEDS: 0.9 % SODIUM CHLORIDE 1,000 ML 1000 ML IV (06:05)
[2023-09-29 06:07] LABS: Amphetamine Screen Urine NEGATIVE (NEGATIVE); Barbiturates Screen Urine NEGATIVE (NEGATIVE); Benzodiazepines Screen Urine NEGATIVE (NEGATIVE); Buprenorphine Screen Urine NEGATIVE (NEGATIVE); Cannabinoid Screen Urine NEGATIVE (NEGATIVE); Cocaine Screen Urine NEGATIVE (NEGATIVE); Methadone Screen Urine NEGATIVE (NEGATIVE); Methamphetamines Screen Urine NEGATIVE (NEGATIVE); Opiate Screen Urine NEGATIVE (NEGATIVE); Oxycodone Screen Urine NEGATIVE (NEGATIVE); Phencyclidine Screen Urine NEGATIVE (NEGATIVE); Tricyclic Antidepressant Urine NEGATIVE (NEGATIVE)
--- NOTE | 2023-09-29 06:33 | PC.NURSE ---
Strip printed off Support Your App monitor d/t monitor not connecting to computer program.
[2023-09-29] MEDS: CEFAZOLIN SODIUM/DEXTROSE,ISO 2 GM/50 ML PIGGYBACK IV ×2 (07:27→14:00)
--- NOTE | 2023-09-29 08:30 | PM.ONB ---
Brief Operative Note Date of procedure: 09/29/23 Pre-op diagnosis: iup at 39wks, previous c/s Post-op diagnosis: same as pre-op Procedure: NAME OF PROCEDURE: [ section ] PROCEDURE: Patient was taken back to the Operating Room where she was given a spinal anesthesia with Duramorph without difficulty. She was prepped and draped in the normal sterile fashion. A Pfannenstiel skin incision was then made 2 cm above the symphysis pubis and carried down to underlying rectus fascia using a Bovie. The fascia was incised in the midline and extended laterally using Trevino scissors. Two Ciera clamps were placed on the superior aspect of the fascia and dissected off the underlying rectus muscles. The same was performed on the inferior aspect as well. The muscles were then in the midline. Peritoneum was identified and entered bluntly. The peritoneum was then extended superiorly and inferiorly with good visualization of the bladder. The bladder blade was inserted. A low transverse incision was made on the patient's uterus and extended laterally digitally. The infant was then delivered atraumatically after the bladder blade was removed in the cephalic position. The cord was clamped and cut. Cord blood was obtained. The was handed off to awaiting team. The patient's placenta was spontaneously delivered. The uterus was then exteriorized. The uterus was cleared of all clots and debris. The bladder blade was reinserted. The patient's uterine incision was closed using #0 Vicryl in a running lock fashion. Excellent hemostasis was assured. The uterus was then returned to the patient's abdomen. The patient's abdomen was copiously irrigated using warm saline. Peritoneal gutters were cleared of all clots and debris. Again excellent hemostasis was assured. The patient's peritoneum was closed using 3-0 Vicryl in a running fashion. The patient's fascia was closed using #0 Vicryl in a running fashion. The patient's skin was closed using 4-0 Vicryl subcuticularly. The patient tolerated the procedure well. Sponge, lap, and needle counts were correct x2. The patient was taken to the Recovery Room in stable condition. Anesthesia: DEVAN Surgeon: Marcos Hazel Exercise Physiologist Certified: Olga Powell Estimated blood loss (mL): 575 Pathology: none sent Condition: stable Disposition: floor Urinary Catheter Management Urinary Catheter Management Urethral: Cath placed during this visit: yes Urethral indwelling: No Insertion date: 09/29/23
--- NOTE | 2023-09-29 08:33 | P.OBPRC_ITS ---
Procedure Pre-op/Post-op diagnoses: Pre-Op/Post-Op Diagnoses Operation Date: 09/29/23 07:30 <No data on this case meets the specified criteria> Procedure: Procedures Operation Date: 09/29/23 07:30 Actual Procedure Side Surgeon p Repeat Not Applicable Marcos Hazel DO Event Marketing Manager: Olga Powell Estimated blood loss (mL): 575 Disposition: floor Anesthesia type: Spinal
[2023-09-29] MEDS: 0.9 % SODIUM CHLORIDE 10 ML VIAL 30 ML INJ (08:40)
[2023-09-29] MEDS: BUPIVACAINE LIPOSOME/PF 266 MG/13.3 ML VIAL INJ (08:40)
[2023-09-29] MEDS: BUPIVACAINE HCL 0.5% PF 50 MG/10 ML VIAL 15 ML INJ (08:40)
[2023-09-29] MEDS: OXYTOCIN/0.9 % SODIUM CHLORIDE 20 UNITS/1,000 ML PLAST..BAG 200 UNIT IV (09:56)
[2023-09-29] MEDS: KETOROLAC TROMETHAMINE 30 MG/ML VIAL IVP ×2 (14:01→20:16)
[2023-09-29] MEDS: ACETAMINOPHEN 500 MG TABLET 1000 MG PO (16:38)
[2023-09-29] MEDS: DIPHENHYDRAMINE HCL 50 MG/ML (1ML) VIAL 25 MG IV (22:55)
[2023-09-30 00:44] VITALS: BP 120/65; PULSE 66; RESP 16; TEMP 36.7
[2023-09-30] MEDS: ACETAMINOPHEN 500 MG TABLET 1000 MG PO ×3 (00:48→15:32)
[2023-09-30] MEDS: KETOROLAC TROMETHAMINE 30 MG/ML VIAL IVP (03:12)
[2023-09-30 04:30] VITALS: BP 115/71; PULSE 67; RESP 16; TEMP 36.6; O2SAT 99
[2023-09-30 06:05] LABS: Basophils Percent Auto 0.3 % (0.2-2.0); Eosinophils Absolute Auto 0.1 10^3/uL (0.0-0.7); Eosinophils Percent Auto 0.8 % (0.9-7.0); Hematocrit 27.2 % (36.0-48.0); Hemoglobin 8.9 g/dL (12.0-16.0); Immature Granulocytes Abs Auto 0.03 10^3/uL (0.00-0.03); Immature Granulocytes Pct Auto 0.3 % (0.0-0.5); Lymphocytes Absolute Auto 2.1 10^3/uL (1.2-3.8); Lymphocytes Percent Auto 22.6 % (20.5-60.0); Mean Corpuscular HGB Conc 32.7 g/dL (29.9-35.2); Mean Corpuscular Hemoglobin 30.3 pg (26.7-34.0); Mean Corpuscular Volume 92.5 fL (81.0-99.0); Monocytes Absolute Auto 0.8 10^3/uL (0.3-0.8); Monocytes Percent Auto 8.4 % (1.7-12.0); Neutrophils Absolute Auto 6.4 10^3/uL (1.4-6.5); Neutrophils Percent Auto 67.6 % (43.0-75.0); Platelet Count 158 10^3/uL (150-450); Red Blood Count 2.94 10^6/uL (4.20-5.40); Red Cell Distribution Width 12.7 % (11.0-15.0); White Blood Count 9.5 10^3/uL (4.0-11.0)
[2023-09-30] MEDS: DIPHENHYDRAMINE HCL 50 MG/ML (1ML) VIAL 25 MG IV (06:34)
[2023-09-30 08:15] VITALS: BP 122/71; PULSE 70; RESP 16; TEMP 37.1
--- NOTE | 2023-09-30 08:39 | PM.OBPN ---
OB - PN: Subj Subjective Patient comments: no complaints, pain well controlled and tolerating diet [place] status: doing well Exam Constitutional Vital Signs, click to edit/add: Last Vital Signs Temp 97.8 F 09/30/23 04:30 Pulse 67 09/30/23 04:30 Resp 16 09/30/23 04:30 BP 115/71 09/30/23 04:30 Pulse Ox 99 09/30/23 04:30 O2 Del Method Room Air 09/30/23 04:30 Common normals: no apparent distress GI Common normals: soft to palpation Inspection: normal to inspection Other: Incision intact, no erythema, well approximated with steri strips Other: Perineum - minimal bleeding Results Labs Labs: Short CBC 09/30/23 Range/Units 05:40 WBC 9.5 (4.0-11.0) 10^3/uL Hgb 8.9 L (12.0-16.0) g/dL Hct 27.2 L (36.0-48.0) % Plt Count 158 (150-450) 10^3/uL Urinary Catheter Management Urinary Catheter Management Urethral: Cath placed during this visit: yes Urethral indwelling: No Insertion date: 09/29/23 2-way Urethral: Cath placed during this visit: yes Urethral indwelling: No Insertion date: 09/29/23 OB - PN: A/P Plan - day: 1 Plan: routine postop care Time Spent with Patient Time: Total time spent is greater than 50% in coordination of care (as documented) at patient's floor/unit and/or counseling patient: Total time spent with greater than 50% in coordination of care (as documented) at patient's floor/unit and/or counseling patient: less than 15 minutes
[2023-09-30] MEDS: IBUPROFEN 400 MG TABLET 800 MG PO ×2 (10:23→18:22)
[2023-09-30] MEDS: DOCUSATE SODIUM 100 MG CAPSULE PO ×2 (10:23→21:39)
[2023-09-30] MEDS: OXYCODONE HCL 5 MG TABLET PO ×2 (11:42→19:48)
--- NOTE | 2023-09-30 15:09 | PC.NURSE ---
Care resumed by this RN.
[2023-09-30 15:40] VITALS: BP 120/66; RESP 16; O2SAT 89
[2023-09-30] MEDS: RHO(D) IMMUNE GLOBULIN 1,500 UNIT SYRINGE 1500 UNIT IM (15:41)
[2023-09-30 22:13] VITALS: BP 119/78; PULSE 74; RESP 16; TEMP 36.5; O2SAT 99
[2023-10-01] MEDS: ACETAMINOPHEN 500 MG TABLET 1000 MG PO ×2 (01:05→09:43)
[2023-10-01] MEDS: IBUPROFEN 400 MG TABLET 800 MG PO (03:51)
--- NOTE | 2023-10-01 07:55 | PM.OBPN ---
OB - PN: Subj Subjective Patient comments: no complaints [place] infant status: doing well Exam Constitutional Vital Signs, click to edit/add: Last Vital Signs Temp 97.7 F 09/30/23 22:13 Pulse 74 09/30/23 22:13 Resp 16 09/30/23 22:13 BP 119/78 09/30/23 22:13 Pulse Ox 99 09/30/23 22:13 O2 Del Method Room Air 09/30/23 22:13 Common normals: no apparent distress GI Common normals: Normal to inspection, nondistended, normoactive bowel sounds present Other: Fundus firm below umbilicus Incision - dry and intact with steri strips Other: perineum - minimal bleeding Urinary Catheter Management Urinary Catheter Management Urethral: Cath placed during this visit: yes Urethral indwelling: No Insertion date: 09/29/23 2-way Urethral: Cath placed during this visit: yes Urethral indwelling: No Insertion date: 09/29/23 OB - PN: A/P Plan - day: 2 Plan: routine postop care and discharge home Time Spent with Patient Time: Total time spent is greater than 50% in coordination of care (as documented) at patient's floor/unit and/or counseling patient: Total time spent with greater than 50% in coordination of care (as documented) at patient's floor/unit and/or counseling patient: less than 15 minutes
--- NOTE | 2023-10-01 07:58 | PM.OBDS ---
DS: Providers Provider Date of admission: 09/29/23 05:22 Primary care physician: Non-Staff Physician, Admitting clinician: Marcos Hazel Consults: 09/29/23 Consult to Anesthesiology Routine Consulting Provider: Raul Hood Reason for consultation: Attending physician on discharge: Marcos Hazel Discharging clinician: Jeanne Hawkins Anticipated date of discharge: 10/01/23 DS: Diagnosis Discharge Diagnosis (1) Term delivered: Plan Normal Follow up as scheduled OB - DS: Summary Peripartum Data - Procedures: Procedures Operation Date: 09/29/23 07:30 Actual Procedure Side Surgeon p Repeat Not Applicable Marcos Hazel DO Peripartum Data - Vaginal Delivery Procedures: Procedures Operation Date: 09/29/23 07:30 Actual Procedure Side Surgeon p Repeat Not Applicable Marcos Hazel DO Complications complications: none Status at Discharge Functional status at discharge: independent ambulation Overall status at discharge: patient is progressing back to baseline Time Spent with Patient Time attestation: Total time spent providing and/or coordinating discharge services: Time spent: less than 30 minutes Exam Constitutional Vital Signs, click to edit/add: Last Vital Signs Temp 97.7 F 09/30/23 22:13 Pulse 74 09/30/23 22:13 Resp 16 09/30/23 22:13 BP 119/78 09/30/23 22:13 Pulse Ox 99 09/30/23 22:13 O2 Del Method Room Air 09/30/23 22:13 Discharge Plan Discharge Disposition: Home, Self-Care Condition: Good Plan of Treatment: normal care Activity: resume usual activities as tolerated Diet: advance to your usual diet Forms: Portal Instructions Follow Up Appointments: as scheduled
[2023-10-01 08:30] VITALS: BP 128/82; PULSE 78; RESP 16; TEMP 36.4
[2023-10-01] MEDS: DOCUSATE SODIUM 100 MG CAPSULE PO (09:43)
== END 2023-10-01 11:25 | disposition home or self-care (01) | DRG 540 ==
PROVIDERS: Admitting Provider Obstetrics & Gynecology; Visit Provider Obstetrics & Gynecology
PROC: 10D00Z1 Extraction of Products of Conception, Low, Open Approach (ICD-10-PCS; CPT 59514; principal; 2023-09-29 07:30)
DX: O34.211 Maternal care for low transverse scar from previous cesarean delivery (principal); Z3A.39 39 weeks gestation of pregnancy; Z37.0 Single live birth; O26.893 Other specified pregnancy related conditions, third trimester; Z67.41 Type O blood, Rh negative
CPT/HCPCS: 36415; 51702; 64488; 80307; 85025; 85461; 86850; 86900; 86901; 96372; 96374; 96375; 96376; J1094; J2790

== ENCOUNTER 2024-05-23 23:14 | Emergency (ER) | payer OTHER, SELFPAY ==
[2024-05-23 23:20] VITALS: BP 119/90; PULSE 68; TEMP 36.5; O2SAT 99; BMI 21.0
--- OUTSIDE RECORDS SUMMARY | 2024-05-23 23:26 | XMS_ITS | CCD ---
Author Organization [employer] [facility] Care Team Providers Care Animal Bounty Hunter Name Role Phone ISABEL ADEN Admitting Unavailabl e RUBÉNICH, ISABEL Attending Unavailabl e FRIDRICH, ISABEL Consulting Unavailabl e Unavailable Primary Care Provider Unavailsanchez e SAIRA JOE Attending Unavailable ILIR, TINO Attending Unavailable ILIR, TINO Attending Unavailable ILIR, TINO Attending Unavailable ILIR, TINO Attending Unavailable IILR, TINO Attending Unavailable SAIRA JOE Attending Unavailable ILIR, TINO Attending Unavailable ILIR, TINO Attending Unavailable SAIRA JOE Attending Unavailable ILIR, TINO Attending Unavailable CADEN JEAN BAPTISTE Attending Unavailable Medications Current Medications Medication Drug [...] UA Negative Negative - 4(70) +++ mg/dL [facility] Blood, UA Negative Negative - 50 Kody/mcL [facility] Clarity, UA Clear [facility] Color, UA Yellow [facility] Glucose, UA Negative Negative - 1999(110) ++++ mg/dL [facility] Interpretation and review of laboratory results Abnormal [facility] Ketones, UA Negative Negative - 160(16) ++++ mg/dL [facility] Leukocytes, UA Positive Negative - 500+++ Jalen/mcL [facility] Comment on above: small Nitrite, UA Negative Negative - Positive [facility] pH, UA 7.0 5 - 9 [facility] Protein, UA Negative Negative - 1999(20) ++++ mg/dL [facility] Spec Grav, UA 1.025 1 - 1.03 [facility] Health care Urobilinogen, UA 0.2 0.2 - 12 mg/[facility] macro (dipstick) panel (U)on 09-06-2023 Bilirubin, UA Negative Negative - 4(70) +++ mg/dL [facility] Blood, UA Negative Negative - 50 Kody/mcL [facility] Clarity, UA Clear [facility] Color, UA Yellow [facility] Glucose, UA Negative Negative - 1999(110) ++++ mg/dL [facility] Interpretation and review of laboratory results Normal [facility] Ketones, UA Negative Negative - 160(16) ++++ mg/dL [facility] Leukocytes, UA Negative Negative - 500+++ Jalen/mcL [facility] Nitrite, UA Negative Negative - Positive [facility] pH, UA 7.5 5 - 9 [facility] Protein, UA Negative Negative - 1999(20) ++++ mg/dL [facility] Spec Grav, UA 1.020 1 - 1.03 [facility] Urobilinogen, UA 0.2 0.2 - 12 mg/dL [facility] URINE PROFILEon 9 Bilirubin [Mass/Vol] Negative Normal NEGATIVE [facility] Comment on above: Performed By: #### E RUR #### [facility] [address] [place] [address] Won Letty BLOOD Negative Normal NEGATIVE The [facility] Comment on above: Performed By: #### E RUR #### [facility] [address] [place] [address] Won Letty Clarity (U) CLEAR Normal [facility] Comment on above: Performed By: #### E RUR #### [facility] [address] [place] [address] Won Letty Color (U) LT. YELLOW Normal YELLOW [facility] Comment on above: Performed By: #### E RUR #### [facility] [address] [place] [address] Won Letty ERUAHD A micrscopic examination will be performed if indicated. Normal [facility] Comment on above: Performed By: #### E RUR #### [facility] [address] [place] [address] Won Letty Glucose [Mass/Vol] Negative Normal NEGATIVE [facility] [place] Comment on above: Performed By: #### E RUR #### [facility] [address] [place] [address] Won Letty Ketones Ql (U) Negative Normal NEGATIVE The [facility] Comment on above: Performed By: #### E RUR #### [facility] [address] [place] [address] Won Letty Nitrite Ql (U) Negative Normal NEGATIVE The [facility] Comment on above: Performed By: #### E RUR #### [facility] [address] [place], [place] [id number] Won Letty pH (Bld) 7.0 Normal 5-9 [facility] Comment on above: Performed By: #### E RUR #### [facility] [address] [place] [address] Won Letty Protein (U) [Mass/Vol] TRACE Normal [facility] Comment on above: Performed By: #### E RUR #### [facility] [address] [place], [place] [address] Won Saenz SPEC GRAVITY 1.020 Normal 1.005-<=1.025 [facility] Comment on above: Performed By: #### E RUR #### [facility] [address] [place], [place] [address] Won Saenz UR MICRO IND NOT INDICATED Normal [facility] Comment on above: Performed By: #### E RUR #### [facility] [address] [place], [place] [address] Won Saenz Urobilinogen Qn (U) 0.2 EU/dl Normal [facility] Comment on above: Performed By: #### E RUR #### [facility] [address] [place], [place] [address] Won Saenz WBC (Bld) [#/Vol] Negative Normal NEGATIVE [facility] Comment on above: Performed By: #### E RUR #### [facility] [address] [place], [place] [address] Won Saenz URon 07-30-2019 , QUAL Negative Normal NEGATIVE The [facility] Comment on above: Performed By: #### P REGU #### [facility] [address] [place], [place] [address] Won Saenz Vital Signs Date Time Vital Sign Value Performing Clinician Faci lity 09-06-2023 14:44-0500 Body weight 69.4 kg Tino Ilir DO Work Phone: [facility] 09-06-2023 14:44-0500 Diastolic blood pressure 68 mm[Hg] Tino Ilir DO Work Phone: [facility] 09-06-2023 14:44-0500 Systolic blood pressure 116 mm[Hg] Tino Ilir DO Work Phone: [facility] Encounters Encounter Date Encounter Type Care Provider Facility Start: 02-15-2024 End: 02-15-2024 ambulatory CADEN JEAN BAPTISTE Not Available Start: 11-14-2023 End: 11-14-2023 ambulatory TINO ILIR Not Available Start: 10-05-2023 End: 10-05-2023 ambulatory SAIRA TATYANA Not Available Start: 09-26-2023 End: 09-26-2023 ambulatory TINO ILIR Not Available Start: 09-19-2023 End: 09-19-2023 ambulatory TINO ILIR Not Available Start: 09-13-2023 End: 09-13-2023 Office outpatient visit 15 minutes Tino Ilir DO Work Phone: [facility] Comment on above: Third trimester preg prince Start: 09-13-2023 End: 09-13-2023 ambulatory TINO ILIR Not Available Start: 09-06-2023 End: 09-06-2023 Office outpatient visit 15 minutes Tino Ilir DO Work Phone: [facility] Comment on above: Third trimester preg prince; Vaginal discharge Start: 09-06-2023 End: 09-06-2023 ambulatory TINO ILIR Not Available Start: 08-30-2023 End: 08-30-2023 ambulatory TINO ILIR Not Available Start: 08-15-2023 End: 08-15-2023 ambulatory TINO ILIR Not Available Start: 08-01-2023 End: 08-01-2023 ambulatory SAIRA TATYANA Not Available Start: 07-18-2023 End: 07-18-2023 ambulatory TINO ILIR Not Available Start: 06-20-2023 End: 06-20-2023 ambulatory SAIRA TATYANA Not Available Start: 07-30-2019 End: 07-30-[address] [facility] Facility: Procedures Date Procedure Procedure Detail Performing Clinician Start: 09-13-2023 Urnls dip stick/tabl et rgnt non-auto w/o micrscp Tino Ilir DO Work Phone: Start: 09-06-2023 Urnls dip stick/tabl et rgnt non-auto w/o micrscp Tino Ilir DO Work Phone: Plan of Treatment Date Care Activity Detail Author Start: 09-19-2023 End: 09-19-2023 Patient encounter procedure 09/19/2023 2:20 PM EST Routine [facility] [address] [facility] [address] Tino Hazel, DO [address] [place] [address] [facility] Start: 09-13-2023 End: 09-13-2023 Patient encounter procedure 09/13/2023 1:00 PM EST Routine [facility] [address] [facility] [id number] Tino Hazel, DO [address] [place] [address] Third trimester [facility] Comment on above: Third trimester preg prince Start: 09-06-2023 End: 09-06-2024 Strep B DNA probe, amplification Strep B DNA probe, amplification Lab Routine Third trimester Expected: 09/06/2023 (Approximate), Expires: 09/06/2024 [facility] Work Phone: Comment on above: Expected: 09/06/2023 (Approximate), Expires: 09/06/2024 CHLAMYDIA TRACHOMATI S (GENITO/STI) CHLAMYDIA TRACHOMATIS (GENITO/STI) Lab Routine Third trimester Vaginal discharge Ordered: 09/06/2023 [facility] Comment on above: Ordered: 09/06/2023 Neisseria gonorrhoea e DNA [Presence] in Unspecified specimen by SACHA with probe detection Neisseria gonorrhea DNA probe, direct Lab Routine Third trimester Vaginal discharge Ordered: 09/06/2023 [facility] Comment on above: Ordered: 09/06/2023 SURESWAB(R) ADVANCED VAGINITIS PLUS, TMA SURESWAB(R) ADVANCED VAGINITIS PLUS, TMA Pathology and Cytology Routine Third trimester Vaginal discharge Ordered: 09/06/2023 [facility] Comment on above: Ordered: 09/06/2023 Payers Date Payer Category Payer Medicaid [employer] [place] [employer] [id number] 2019-Present [address] [place] [address] [id number] 1999 Unknown [id number] 1999 Unknown [id number] 1999 Unknown [id number] [id number] 1999 Unknown [id number] [id number] 1999 Unknown [id number] [id number] 1999 Unknown [id number] [id number] 1999 Unknown [id number] [id number] 1999 Unknown [id number] [id number] 1999 Unknown [id number] [id number] 1999 Unknown [id number] [id number] 1999 Unknown [id number] [id number] 1999 Unknown [id number] [id number] 1999 Unknown [id number] 1959 Unknown [id number] Social History Date Type Detail Facility Start: 03-21-2023 Tobacco smoking stat [facility] Never smoked tobacco [facility] Start: 09-06-2023 End: 09-13-2023 Alcohol intake Lifetime non-drinker (finding) [facility] Start: 04-25-2023 History of Social function [facility] Start: 04-25-2023 Tobacco use panel [facility] Start: 03-21-2023 Alcohol Comment Caffeine: occasional ly [facility] Start: 01-12-2023 [facility] Start: 2000 Sex Assigned At Not on file [facility] History of Present illness Narrative 09-13-2023 Letty Garrett, TYLER - 09/13/2023 1:00 PM EST Note Date [...] nursing note reviewed. Exam conducted with a transfer driver present. Vitals: There is no height or [...] reviewed, and patient is to proceed to [facility] on her scheduled day. Follow [...] nursing note reviewed. Exam conducted with a transfer driver present. Vitals: There is no height or [...] DATE CREATED AUTHOR 01/15/2020 [facility] DATE CREATED AUTHOR AUTHOR'S ORGANSHAMEKA ATION 02/18/2024 [facility] EPIC Reason for Visit [...] BE BASED ON THE PRIMARY CLINICAL RECORDS. [facility] [email or web address] [facility]. provides no warranty or guarantee of the accuracy or completeness of information in this document.
--- NOTE | 2024-05-23 23:46 | CT_ITS ---
The [address] [address] Patient Name: ELIAS DELGADO MRN: [id number] date: 2000 Sex: F Assigned Patient Location: ER Current Patient Location: .MAIN Accession/Order Number: [id number] Exam Date: 05/23/2024 23:59 Report Date: 05/24/2024 01:46 At the request of: WILLIAM SALCEDO Procedure: CT facial bones wo con EXAM: CT facial bones wo con HISTORY: right mandible /dental pain COMPARISON: None. TECHNIQUE: Contiguous thin section axial scans obtained through the facial bones and orbital structures with coronal and sagittal reformatted images. Reviewed and submitted in bone and soft tissue windows. FINDINGS: The paranasal sinuses are well aerated and clear. No air-fluid levels. Imaged portions of the anterior mastoid air cells are aerated and clear. Facial bones including orbital guadalupe are intact without fracture. No bone lesion or destructive process. Adequate bone mineralization. Orbital rims are well-maintained. There is some chronic nasal septal deviation to the left anteriorly. No acute nasal bone fractures. No acute nasal septal fracture. Intact normal zygomatic arches and pterygoid plates and occluded skull base. Normal mandible and maxilla. Normal bilateral temporomandibular joints. Included upper cervical vertebrae and odontoid are normal. Normal orbits and globes and intraconal structures. Facial soft tissues are normal without edema or swelling or mass. The included intracranial structures are unremarkable. The imaged teeth demonstrate no obvious dental caries or periapical lucencies. There is suggestion of the abutment and at least partial occlusion of the right wisdom tooth with adjacent second molar. This could cause some symptoms. CT/CT facial bones wo con IMPRESSION: 1. Chronic nasal septal deviation to the left; otherwise, negative CT maxillofacial bones. 2. There is abutment and partial occlusion and/or PACS of the right wisdom tooth upon the adjacent second molar right posterior mandible. This may be source of patient's symptoms. Recommend follow-up dental consultation for further management. Electronically authenticated by: TRAMAINE ROBERTS Date: 05/24/2024 01:46
--- NOTE | 2024-05-23 23:53 | ED.DENTAL1 ---
HPI - Dental/Oral General Chief complaint: Dental/Oral Stated complaint: r side dental pain Time Seen by Provider: 05/23/24 23:39 Source: patient Mode of arrival: walk-in History of Present Illness HPI Narrative: dental procedure around 05/05/24 including placement of a filling. Developed pain yesterday of her right lower mandibular area. increased pain today. Pain comes and goes and starts abruptly and last about one minute before it fades away. States pain can be 20/10 when it occurs. No pain at this time Related Data Home Medications ?Medication ?Instructions ?Recorded ?Confirmed lamotrigine 25 mg tablet mg 05/23/24 sertraline 100 mg tablet mg 05/23/24 sertraline 50 mg tablet mg 05/23/24 Allergies Allergy/AdvReac Type Severity Reaction Status Date / Time No Known Drug Allergies Allergy Verified 05/23/24 23:29 Review of Systems ROS Status of ROS 10 or more systems reviewed and unremarkable except as noted in history and below PFSH PFSH Social History Highest level of school completed/degree received: high school graduate Little interest or pleasure in doing things: not at all Feeling down, depressed, or hopeless: not at all Exam Constitutional Vital Signs, click to edit/add: Last Vital Signs Temp 97.7 F 05/23/24 23:20 Pulse 68 05/23/24 23:20 Resp 18 05/23/24 23:20 BP 119/90 05/23/24 23:20 Pulse Ox 99 05/23/24 23:20 O2 Del Method Room Air 05/23/24 23:20 Common normals: no apparent distress, average body habitus, oriented x3, no limitations, healthy appearing, alert and well nourished [facility] External ear: external ears normal Tympanic membrane: TMs normal bilaterally Other: no dental caries and teeth are not andrae Eye Common normals: PERRL, EOMs intact bilaterally and conjunctivae normal Respiratory Common normals: normal respiratory effort, no retractions, no use of accessory muscles and clear to auscultation bilaterally Cardio Common normals: regular rate, regular rhythm, S1 normal heart sound and S2 normal heart sound Extremity Common normals: normal to inspection and full ROM Neuro Common normals: oriented x3, CN's II-XII intact bilaterally, moves all extremities and no focal motor deficits Psych Appearance: grossly normal Course Vital Signs Vital signs: Vital Signs Temperature 97.7 F 05/23/24 23:20 Pulse Rate 68 05/23/24 23:20 Respiratory Rate 18 05/23/24 23:20 Blood Pressure 119/90 05/23/24 23:20 Pulse Oximetry 99 05/23/24 23:20 Oxygen Delivery Method Room Air 05/23/24 23:20 Temperature 97.7 F 05/23/24 23:20 Pulse Rate 68 05/23/24 23:20 Respiratory Rate 18 05/23/24 23:20 Blood Pressure 119/90 05/23/24 23:20 Pulse Oximetry 99 05/23/24 23:20 Oxygen Delivery Method Room Air 05/23/24 23:20 MDM - Dental/Oral MDM Narrative Medical decision making narrative: patient presents complaining of severe dental pain. Inspection of her teeth without caries. Does have lower right wisdom tooth abutting the adjoining tooth but neither is tender. Pain comes and goes. Acute onset of severe pain that last about one minutes and then fades away. Clinically I suspect she has trigeminal neuralgia. treated in the department with lyrica, tegretol and norco. Discharge with [place] and Tegretol and advised to follow up with her doctor. CT face without evidence of infection Lab Data Labs: Lab Results 05/24/24 Range/Units 00:20 WBC 9.0 (4.0-11.0) 10^3/uL RBC 3.97 L (4.20-5.40) 10^6/uL Hgb 12.6 (12.0-16.0) g/dL Hct 35.2 L (36.0-48.0) % MCV 88.7 (81.0-99.0) fL MCH 31.7 (26.7-34.0) pg MCHC 35.8 H (29.9-35.2) g/dL RDW 11.6 (11.0-15.0) % Plt Count 207 (150-450) 10^3/uL MPV 10.4 (9.5-13.5) fL Neut % (Auto) 58.3 (43.0-75.0) % Lymph % (Auto) 33.2 (20.5-60.0) % [place] % (Auto) 5.7 (1.7-12.0) % Eos % (Auto) 2.0 (0.9-7.0) % Baso % (Auto) 0.6 (0.2-2.0) % Neut # (Auto) 5.2 (1.4-6.5) 10^3/uL Lymph # (Auto) 3.0 (1.2-3.8) 10^3/uL [place] # (Auto) 0.5 (0.3-0.8) 10^3/uL Eos # (Auto) 0.2 (0.0-0.7) 10^3/uL Baso # (Auto) 0.1 (0.0-0.1) 10^3/uL Abs Immat Gran (auto) 0.02 (0.00-0.03) 10^3/uL Imm/Tot Granulo (auto) 0.2 (0.0-0.5) % Sodium 140 (136-145) mmol/L Potassium 4.0 (3.5-5.1) mmol/L Chloride 105 (98-107) mmol/L Carbon Dioxide 24.5 (21.0-32.0) mmol/L Anion Gap 14.5 BUN 13.0 (7.0-18.0) mg/dL Creatinine 0.64 (0.55-1.02) mg/dL Est GFR ( Amer) >60 (>=60 mL/min/1.73m^2) Est GFR (Non-Af Amer) >60 (>=60 mL/min/1.73m^2) BUN/Creatinine Ratio 20.3 Glucose 95 (74-106) mg/dL Calcium 9.3 (8.5-10.1) mg/dL C-Reactive Protein 1.13 H (<=0.50) mg/dL Imaging Data Abdominal x-ray: Radiologist's impression: ITS Impressions Facial Bones CT 05/23/24 23:46 IMPRESSION: 1. Chronic nasal septal deviation to the left; otherwise, negative CT maxillofacial bones. 2. There is abutment and partial occlusion and/or PACS of the right wisdom tooth upon the adjacent second molar right posterior mandible. This may be source of patient's symptoms. Recommend follow-up dental consultation for further management. Electronically authenticated by: TRAMAINE ROBERTS Date: 05/24/2024 01:46 Discharge Plan Discharge Chief Complaint: Dental/Oral Clinical Impression: Idiopathic trigeminal neuralgia Patient Disposition: Home, Self-Care Prescriptions / Home Meds: No Action sertraline 100 mg tablet lamotrigine 25 mg tablet sertraline 50 mg tablet Print Language: Cymro Instructions: Trigeminal Neuralgia (ED) Additional Instructions: follow up with your doctor early next week Referrals: Physician,Non-Staff, MD [Primary Care Provider] - 1 week
[2024-05-24] MEDS: PREGABALIN 50 MG CAPSULE PO (00:20)
[2024-05-24 00:30] LABS: Basophils Absolute Auto 0.1 10^3/uL (0.0-0.1); Basophils Percent Auto 0.6 % (0.2-2.0); Eosinophils Absolute Auto 0.2 10^3/uL (0.0-0.7); Hematocrit 35.2 % (36.0-48.0); Hemoglobin 12.6 g/dL (12.0-16.0); Immature Granulocytes Abs Auto 0.02 10^3/uL (0.00-0.03); Immature Granulocytes Pct Auto 0.2 % (0.0-0.5); Lymphocytes Percent Auto 33.2 % (20.5-60.0); Mean Corpuscular HGB Conc 35.8 g/dL (29.9-35.2); Mean Corpuscular Hemoglobin 31.7 pg (26.7-34.0); Mean Corpuscular Volume 88.7 fL (81.0-99.0); Mean Platelet Volume 10.4 fL (9.5-13.5); Monocytes Absolute Auto 0.5 10^3/uL (0.3-0.8); Monocytes Percent Auto 5.7 % (1.7-12.0); Neutrophils Absolute Auto 5.2 10^3/uL (1.4-6.5); Neutrophils Percent Auto 58.3 % (43.0-75.0); Platelet Count 207 10^3/uL (150-450); Red Blood Count 3.97 10^6/uL (4.20-5.40); Red Cell Distribution Width 11.6 % (11.0-15.0)
[2024-05-24 00:44] LABS: Anion Gap 14.5; BUN Creatinine Ratio 20.3; C Reactive Protein 1.13 mg/dL (<=0.50); Calcium 9.3 mg/dL (8.5-10.1); Carbon Dioxide 24.5 mmol/L (21.0-32.0); Chloride 105 mmol/L (98-107); Estimated GFR (African America >60 (>=60 mL/min/1.73m^2); Estimated GFR (Non-African Ame >60 (>=60 mL/min/1.73m^2); Glucose 95 mg/dL (74-106); Sodium 140 mmol/L (136-145)
[2024-05-24] MEDS: HYDROCODONE/ACET 5-325 MG TABLET 2 TAB PO (01:40)
[2024-05-24] MEDS: CARBAMAZEPINE 200 MG TABLET PO (02:22)
[2024-05-24] MEDS: HYDROCODONE/ACET 5-325 MG TABLET 4 TAB PO (02:23)
== END 2024-05-24 02:27 | disposition home or self-care (01) ==
PROVIDERS: Emergency Provider Internal Medicine
DX: G50.0 Trigeminal neuralgia (principal)
CPT/HCPCS: 36415; 70486; 80048; 85025; 86140; 99284

== ENCOUNTER 2024-12-02 20:11 | Outpatient (REF) | payer OTHER, SELFPAY ==
[2024-12-05 10:08] LABS: Age Gdln ACOG Testing Note (.); IGP, rfx Aptima HPV ASCU Note (.)
== END 2024-12-02 20:12 | disposition home or self-care (01) ==
LOC: LAB 20:11
PROVIDERS: Visit Provider Physician Assistant
DX: Z01.419 Encounter for gynecological examination (general) (routine) without abnormal findings (principal)
CPT/HCPCS: 88175